=== PATIENT | male | born 1945 | race Caucasian/White ===

== ENCOUNTER 2018-05-17 11:25 | Inpatient (IN) | payer MEDICARE, OTHER ==
[~2018-05-17] VITALS: Ht 180.3 cm; Wt 81.2 kg
[2018-05-17 12:07] LABS: Basophils # (auto) 0 uL; Basophils % (auto) 0.5 % (0.0-2.0); Eosinophils # (auto) 0 uL; Eosinophils % (auto) 0.5 % (0.0-7.0); Hematocrit 47.7 % (41.0-53.0); Hemoglobin 15.8 g/dL (13.5-17.5); Lymphocytes # (auto) 1.4 uL; Lymphocytes % (auto) 19.4 % (10.0-50.0); Mean Corpuscular Hemoglobin 30.6 pg (28.0-32.0); Mean Corpuscular Hgb Conc. 33.2 g/dL (32.0-36.0); Mean Corpuscular Volume 92.3 fL (80.0-100.0); Monocytes # (auto) 0.7 uL; Neutrophils # (auto) 5.2 uL; Neutrophils % (auto) 70.6 % (37.0-80.0); Platelet Count (auto) 204 10^3/uL (140-450); Red Blood Cells 5.16 10^6/uL (4.5-5.90); Red Cell Distribution Width 15.1 % (11.8-14.3); White Blood Cell 7.4 10^3/uL (4.4-10.8)
[2018-05-17 12:30] LABS: Alanine Aminotransferase 32 U/L (16-61); Albumin 3.9 g/dL (3.4-5.0); Anion Gap 4 (5-15); Blood Urea Nitrogen 14 mg/dL (7-18); Calcium 8.9 mg/dL (8.5-10.1); Carbon Dioxide 27 mmol/L (21-32); Chloride 104 mmol/L (98-107); Glucose 113 mg/dL (74-106); Potassium 3.5 mmol/L (3.5-5.1); Sodium 135 mmol/L (136-145)
[2018-05-17 12:35] LABS: Alkaline Phosphatase 73 U/L (45-117); Aspartate Aminotransferase 20 U/L (15-37); BUN/Creatinine Ratio 15.7; Bilirubin, Total 0.5 mg/dL (0.2-1.0); GFR African American 108 mL/min; GFR Non-African American 90 mL/min; Total Protein 7.9 g/dL (6.4-8.2)
[2018-05-17] MEDS ORDERED: ASPirin 81 mg TAB PO ONE (13:15)
[2018-05-17] MEDS ORDERED: HYDROcodone-ACET 5/325MG TAB PO PRN (13:45)
[2018-05-17] MEDS ORDERED: LABETALOL HCL 5 MG/ML ML 20ML VIAL IV PRN (13:45)
[2018-05-17] MEDS ORDERED: LORazepam 0.5 MG TAB PO PRN (13:45)
[2018-05-17] MEDS ORDERED: MORPHINE SULFATE 4 MG/ML SYR/VIAL IV PRN ×2 (13:45)
[2018-05-17] MEDS ORDERED: LACTULOSE 20Gm/30ML SOLN PO PRN (13:45)
[2018-05-17] MEDS ORDERED: PROMETHAZINE HCL 25 MG/ML 1ML IV PRN (13:45)
[2018-05-17] MEDS ORDERED: ACETAMINOPHEN 500 MG TAB PO PRN (13:45)
[2018-05-17] MEDS ORDERED: NITROGLYCERIN 0.4 MG SL TAB SL PRN (13:45)
[2018-05-17 13:49] LABS: Blood Alcohol < 3.0 mg/dL (0-5); Magnesium 2.1 mg/dL (1.6-2.6)
[2018-05-17] MEDS: SODIUM CHLORIDE 0.9% 1,000 ML IV SCH (13:51)
[2018-05-17 13:53] LABS: Urine Bacteria NONE SEEN /hpf (None Seen); Urine Blood Negative /uL (Negative); Urine Mucus FEW (None Seen); Urine Specific Gravity 1.015 (1.001-1.035); Urine WBC 1 /hpf (0 - 3)
[2018-05-17 14:05] LABS: Alcohol, Urine < 3.0 mg/dL (0-5); Amphetamine Screen, Urine NEGATIVE (NEGATIVE); Barbiturate Scree,Urine NEGATIVE (NEGATIVE); Benzodiazephine Screen, Urine NEGATIVE (NEGATIVE); Cannabinoid Screen, Urine POSITIVE (NEGATIVE); Cocaine Screen, Urine NEGATIVE (NEGATIVE); Opiate Scree,Urine NEGATIVE (NEGATIVE); Phencyclidine Screen, Urine NEGATIVE (NEGATIVE)
[2018-05-17] MEDS ORDERED: ENOXAPARIN SOD 40 MG/0.4 ML SYRINGE SC SCH (14:12)
[2018-05-17 15:36] VITALS: BP 98/64
[2018-05-17] MEDS ORDERED: LISI40TA PO (16:16)
[2018-05-17] MEDS ORDERED: ATOR20TA50 PO (16:16)
[2018-05-17] MEDS ORDERED: HCTZ25T PO (16:16)
[2018-05-17 16:50] VITALS: BP 164/93
[2018-05-17] MEDS: TEMAZEPAM 15 MG CAP PO PRN (21:42)
[2018-05-17] MEDS ORDERED: ATORVASTATIN 20 MG TAB PO SCH (22:00)
[2018-05-18] MEDS: SODIUM CHLORIDE 0.9% 1,000 ML IV SCH (03:18)
[2018-05-18 05:03] VITALS: BP 145/73
[2018-05-18 06:08] LABS: Cholesterol 174 mg/dL (< 200); HDL Cholesterol 79 mg/dL (40-59); LDL Cholesterol 89 mg/dL (< 100); Triglycerides 70 mg/dL (< 150)
[2018-05-18] MEDS ORDERED: IBUP800T24 PO (08:07)
[2018-05-18] MEDS ORDERED: LORazepam 2MG/ML-1ML VIAL IV PRN (09:00)
[2018-05-18 09:03] VITALS: BP 194/98
[2018-05-18] MEDS: PANTOPRAZOLE 40 MG TAB PO SCH (09:32)
[2018-05-18] MEDS: ENOXAPARIN SOD 40 MG/0.4 ML SYRINGE SC SCH ×2 (09:33→21:23)
[2018-05-18] MEDS: ASPirin 81 mg TAB PO SCH (09:33)
[2018-05-18 09:39] LABS: Folate (Folic Acid) > 24.00 ng/mL (5.38-24)
[2018-05-18] MEDS: cloNIDine HCL 0.1 MG TAB PO PRN ×2 (11:35→23:12)
[2018-05-18 13:00] VITALS: BP 159/93
[2018-05-18 15:05] VITALS: BP 133/91
[2018-05-18 17:00] VITALS: BP 136/67
[2018-05-18] MEDS: TEMAZEPAM 15 MG CAP PO PRN (21:02)
[2018-05-18 22:00] VITALS: BP 161/81
[2018-05-18] MEDS ORDERED: ATORVASTATIN 20 MG TAB PO SCH ×2 (22:00)
[2018-05-19 05:00] VITALS: BP 156/78
[2018-05-19 05:19] LABS: Basophils # (auto) 0 uL; Basophils % (auto) 0.6 % (0.0-2.0); Eosinophils # (auto) 0.1 uL; Eosinophils % (auto) 0.7 % (0.0-7.0); Hematocrit 46.5 % (41.0-53.0); Hemoglobin 15.5 g/dL (13.5-17.5); Lymphocytes # (auto) 1.6 uL; Lymphocytes % (auto) 22.5 % (10.0-50.0); Mean Corpuscular Hemoglobin 30.9 pg (28.0-32.0); Mean Corpuscular Hgb Conc. 33.3 g/dL (32.0-36.0); Monocytes # (auto) 0.7 uL; Neutrophils # (auto) 4.7 uL; Neutrophils % (auto) 66.2 % (37.0-80.0); Nucleated Red Blood Cells % 0.1 %; Platelet Count (auto) 180 10^3/uL (140-450); Red Cell Distribution Width 15.3 % (11.8-14.3); White Blood Cell 7.1 10^3/uL (4.4-10.8)
[2018-05-19 05:31] LABS: Albumin 3.4 g/dL (3.4-5.0); Calcium 8.6 mg/dL (8.5-10.1); Potassium 3.8 mmol/L (3.5-5.1)
[2018-05-19 05:36] LABS: BUN/Creatinine Ratio 17.2; Bilirubin, Total 0.7 mg/dL (0.2-1.0); Total Protein 7.2 g/dL (6.4-8.2)
[2018-05-19 09:00] VITALS: BP 164/97
[2018-05-19] MEDS: PANTOPRAZOLE 40 MG TAB PO SCH (09:27)
[2018-05-19] MEDS: ASPirin 81 mg TAB PO SCH (09:27)
[2018-05-19] MEDS: ENOXAPARIN SOD 40 MG/0.4 ML SYRINGE SC SCH (09:36)
[2018-05-19] MEDS ORDERED: HCTZ 25 MG TAB PO SCH (10:00)
[2018-05-19] MEDS ORDERED: LISINOPRIL 20 MG TAB PO SCH (10:00)
[2018-05-19 13:00] VITALS: BP 155/95
[2018-05-19 13:54] VITALS: BP 156/78
[2018-05-19 14:00] VITALS: BP 156/78
== END 2018-05-19 14:38 | disposition home health service (06) | DRG 65 ==
LOC: ER 11:33 → TELE 13:53 → TELE-WESTW 14:56
PROVIDERS: ADMIT Internal Medicine; ATTEND Internal Medicine
DX: I63.9 Cerebral infarction, unspecified (principal); E87.1 Hypo-osmolality and hyponatremia; E66.01 Morbid (severe) obesity due to excess calories; E78.5 Hyperlipidemia, unspecified; F12.90 Cannabis use, unspecified, uncomplicated; F17.200 Nicotine dependence, unspecified, uncomplicated; G89.29 Other chronic pain; I10 Essential (primary) hypertension; M54.5 Low back pain; Z79.82 Long term (current) use of aspirin; M19.90 Unspecified osteoarthritis, unspecified site; Z79.899 Other long term (current) drug therapy; Z86.73 Personal history of transient ischemic attack (TIA), and cerebral infarction without residual deficits; Z82.3 Family history of stroke; Z82.49 Family history of ischemic heart disease and other diseases of the circulatory system; Z90.89 Acquired absence of other organs; Z68.25 Body mass index [BMI] 25.0-25.9, adult
CPT/HCPCS: 36415; 70450; 80053; 80061; 80307; 80320; 81001; 82550; 82746; 83735; 84484; 85025; 85652; 93005; 93306; 93886; 94761; 96372; A6257; G0378

== ENCOUNTER → 2018-06-03 | Outpatient (CLI) | payer MEDICARE, OTHER ==
[~2018-06-03] MED LIST: ATOR20TA50 PO; HCTZ25T PO; IBUP800T24 PO; LISI40TA PO
[2018-06-03 10:08] LABS: Potassium 3.7 mmol/L (3.5-5.1)
[2018-06-03 10:18] LABS: Calcium 8.9 mg/dL (8.5-10.1)
== END | disposition home or self-care (01) ==
LOC: LAB 08:16
PROVIDERS: ATTEND Psychiatry & Neurology Neurology
DX: I63.9 Cerebral infarction, unspecified (principal)
CPT/HCPCS: 36415; 80048

== ENCOUNTER → 2018-06-29 | Outpatient (CLI) | payer MEDICARE, OTHER ==
[2018-06-29 10:57] LABS: BUN/Creatinine Ratio 35.2; Calcium 9.2 mg/dL (8.5-10.1); Potassium 3.9 mmol/L (3.5-5.1)
== END | disposition home or self-care (01) ==
LOC: LAB 09:13
PROVIDERS: ATTEND Internal Medicine
DX: Z12.5 Encounter for screening for malignant neoplasm of prostate (principal); I10 Essential (primary) hypertension; E78.5 Hyperlipidemia, unspecified; E55.9 Vitamin D deficiency, unspecified; E66.9 Obesity, unspecified; Z86.73 Personal history of transient ischemic attack (TIA), and cerebral infarction without residual deficits
CPT/HCPCS: 36415; 80048; 82306; 84153; 84443

== ENCOUNTER → 2018-08-19 | Outpatient (CLI) | payer MEDICARE, OTHER | END | disposition home or self-care (01) | LOC: LAB 08:52 | PROVIDERS: ATTEND Internal Medicine | DX: Z12.11 Encounter for screening for malignant neoplasm of colon (principal); I10 Essential (primary) hypertension; E78.5 Hyperlipidemia, unspecified; L60.3 Nail dystrophy; Z79.899 Other long term (current) drug therapy | CPT/HCPCS: 36415; 83036 ==

== ENCOUNTER → 2018-12-22 | Outpatient (CLI) | payer MEDICARE, OTHER ==
[2018-12-22 10:52] LABS: Albumin 3.6 g/dL (3.4-5.0); Calcium 9.2 mg/dL (8.5-10.1)
[2018-12-22 10:58] LABS: BUN/Creatinine Ratio 19.4; Bilirubin, Total 0.4 mg/dL (0.2-1.0); Total Protein 7.6 g/dL (6.4-8.2)
== END | disposition home or self-care (01) ==
LOC: LAB 09:13
PROVIDERS: ATTEND Internal Medicine
DX: E11.9 Type 2 diabetes mellitus without complications (principal)
CPT/HCPCS: 36415; 80053; 82043; 83036

== ENCOUNTER → 2019-02-18 | Outpatient (CLI) | payer MEDICARE, OTHER | END | disposition home or self-care (01) | LOC: LAB 10:37 | PROVIDERS: ATTEND Internal Medicine | DX: R22.43 Localized swelling, mass and lump, lower limb, bilateral (principal); R06.02 Shortness of breath | CPT/HCPCS: 83880 ==

== ENCOUNTER → 2020-03-08 | Outpatient (CLI) | payer MEDICARE, OTHER ==
[~2020-03-08] MED LIST changes: -LISI40TA PO; +LISI40TA11 PO
[2020-03-08 09:08] LABS: Potassium 3.8 mmol/L (3.5-5.1)
[2020-03-08 09:20] LABS: Albumin 3.6 g/dL (3.4-5.0); BUN/Creatinine Ratio 21.4; Bilirubin, Total 0.4 mg/dL (0.2-1.0); Calcium 8.9 mg/dL (8.5-10.1); Total Protein 7.3 g/dL (6.4-8.2)
== END | disposition home or self-care (01) ==
LOC: LAB 07:37
PROVIDERS: ATTEND Internal Medicine
DX: E11.9 Type 2 diabetes mellitus without complications (principal); E78.5 Hyperlipidemia, unspecified
CPT/HCPCS: 36415; 80053; 80061; 83036

== ENCOUNTER → 2020-06-12 | Outpatient (CLI) | payer MEDICARE, OTHER ==
[2020-06-12 07:46] LABS: Urine Bacteria NONE SEEN /hpf (None Seen); Urine Blood Negative /uL (Negative); Urine Mucus FEW (None Seen); Urine Specific Gravity 1.022 (1.001-1.035); Urine WBC 2 /hpf (0 - 3)
== END | disposition home or self-care (01) ==
LOC: LAB 07:12
PROVIDERS: ATTEND Internal Medicine
DX: Z12.5 Encounter for screening for malignant neoplasm of prostate (principal); Z12.11 Encounter for screening for malignant neoplasm of colon; E11.9 Type 2 diabetes mellitus without complications; E78.5 Hyperlipidemia, unspecified
CPT/HCPCS: 81001; 84153

== ENCOUNTER → 2020-10-02 | Outpatient (CLI) | payer MEDICARE, OTHER ==
[~2020-10-02] MED LIST changes: -HCTZ25T PO; +HYDR25TA5 PO; -IBUP800T24 PO; +IBUP800T27 PO
== END | disposition home or self-care (01) ==
LOC: LAB 07:17
PROVIDERS: ATTEND Internal Medicine
DX: E11.9 Type 2 diabetes mellitus without complications (principal); E78.5 Hyperlipidemia, unspecified
CPT/HCPCS: 36415; 82043; 83036

== ENCOUNTER → 2020-10-17 | Outpatient (CLI) | payer MEDICARE, OTHER | END | disposition home or self-care (01) | LOC: LAB 09:17 | PROVIDERS: ATTEND Internal Medicine | DX: E11.9 Type 2 diabetes mellitus without complications (principal); I50.9 Heart failure, unspecified | CPT/HCPCS: 83880 ==

== ENCOUNTER → 2020-11-13 | Outpatient (CLI) | payer MEDICARE, OTHER ==
[2020-11-13 07:47] LABS: BUN/Creatinine Ratio 22.7; Calcium 8.9 mg/dL (8.5-10.1); Potassium 3.8 mmol/L (3.5-5.1)
== END | disposition home or self-care (01) ==
LOC: LAB 07:16
PROVIDERS: ATTEND Internal Medicine
DX: E11.9 Type 2 diabetes mellitus without complications (principal); I50.9 Heart failure, unspecified
CPT/HCPCS: 36415; 80048

== ENCOUNTER → 2020-11-15 | Outpatient (CLI) | payer MEDICARE, OTHER | END | disposition home or self-care (01) | LOC: XYW 08:41 | PROVIDERS: ATTEND Internal Medicine | DX: I35.8 Other nonrheumatic aortic valve disorders (principal); I51.7 Cardiomegaly; I50.9 Heart failure, unspecified | CPT/HCPCS: 93306 ==

== ENCOUNTER → 2020-12-29 | Outpatient (CLI) | payer MEDICARE, OTHER ==
[2020-12-29 08:00] LABS: Calcium 9.3 mg/dL (8.5-10.1); Potassium 4.2 mmol/L (3.5-5.1)
== END | disposition home or self-care (01) ==
LOC: LAB 07:08
PROVIDERS: ATTEND Internal Medicine
DX: E11.9 Type 2 diabetes mellitus without complications (principal)
CPT/HCPCS: 36415; 80048

== ENCOUNTER → 2021-05-09 | Outpatient (CLI) | payer MEDICARE, OTHER ==
[2021-05-09 08:27] LABS: BUN/Creatinine Ratio 29.1; Calcium 8.8 mg/dL (8.5-10.1); Potassium 4.1 mmol/L (3.5-5.1)
== END | disposition home or self-care (01) ==
LOC: LAB 07:39
PROVIDERS: ATTEND Internal Medicine
DX: E11.9 Type 2 diabetes mellitus without complications (principal)
CPT/HCPCS: 36415; 80048

== ENCOUNTER → 2021-06-19 | Outpatient (CLI) | payer MEDICARE, OTHER ==
[2021-06-19 10:06] LABS: Albumin 3.7 g/dL (3.4-5.0); Bilirubin, Direct 0.1 mg/dL (0-0.2); Bilirubin, Total 0.4 mg/dL (0.2-1.0); Total Protein 7.4 g/dL (6.4-8.2)
== END | disposition home or self-care (01) ==
LOC: LAB 08:09
PROVIDERS: ATTEND Internal Medicine
DX: E78.5 Hyperlipidemia, unspecified (principal)
CPT/HCPCS: 36415; 80076

== ENCOUNTER → 2021-08-01 | Outpatient (CLI) | payer MEDICARE, OTHER ==
[2021-08-01 10:35] LABS: Potassium 4.2 mmol/L (3.5-5.1)
[2021-08-01 10:43] LABS: Albumin 3.9 g/dL (3.4-5.0); BUN/Creatinine Ratio 26.3; Bilirubin, Direct 0.1 mg/dL (0-0.2); Bilirubin, Total 0.5 mg/dL (0.2-1.0); Calcium 9.1 mg/dL (8.5-10.1); Total Protein 7.3 g/dL (6.4-8.2)
== END | disposition home or self-care (01) ==
LOC: LAB 07:17
PROVIDERS: ATTEND Internal Medicine
DX: I11.0 Hypertensive heart disease with heart failure (principal); E11.9 Type 2 diabetes mellitus without complications; I50.9 Heart failure, unspecified; Z12.11 Encounter for screening for malignant neoplasm of colon; R97.20 Elevated prostate specific antigen [PSA]
CPT/HCPCS: 36415; 80048; 80061; 80076; 82043; 83880; 84153; 84154

== ENCOUNTER → 2021-10-31 | Outpatient (CLI) | payer MEDICARE, OTHER ==
[2021-10-31 08:27] LABS: Albumin 3.7 g/dL (3.4-5.0); Calcium 8.9 mg/dL (8.5-10.1)
[2021-10-31 08:32] LABS: BUN/Creatinine Ratio 25.3; Bilirubin, Total 0.6 mg/dL (0.2-1.0); Total Protein 7.6 g/dL (6.4-8.2)
== END | disposition home or self-care (01) ==
LOC: LAB 07:22
PROVIDERS: ATTEND Internal Medicine
DX: E78.5 Hyperlipidemia, unspecified (principal); E11.9 Type 2 diabetes mellitus without complications; R97.20 Elevated prostate specific antigen [PSA]
CPT/HCPCS: 36415; 80053; 83036; 84153; 84154

== ENCOUNTER → 2022-01-29 | Outpatient (CLI) | payer MEDICARE, OTHER | END | disposition home or self-care (01) | LOC: LAB 07:17 | PROVIDERS: ATTEND Internal Medicine | DX: E11.9 Type 2 diabetes mellitus without complications (principal) | CPT/HCPCS: 36415; 83036 ==

== ENCOUNTER → 2022-06-04 | Outpatient (CLI) | payer MEDICARE, OTHER ==
[2022-06-04 07:50] LABS: Basophils # (auto) 0 10 ^3/uL (0-0.2); Basophils % (auto) 0.5 % (0.0-2.0); Eosinophils # (auto) 0.2 10 ^3/uL (0-0.8); Hematocrit 41.3 % (41.0-53.0); Hemoglobin 14.1 g/dL (13.5-17.5); Lymphocytes # (auto) 3.3 10 ^3/uL (0.4-5.4); Lymphocytes % (auto) 40.5 % (10.0-50.0); Mean Corpuscular Hemoglobin 30.8 pg (28.0-32.0); Mean Corpuscular Hgb Conc. 34.1 g/dL (32.0-36.0); Mean Corpuscular Volume 90.1 fL (80.0-100.0); Monocytes # (auto) 0.9 10 ^3/uL (0-1.3); Monocytes % (auto) 11.6 % (0.0-12.0); Neutrophils # (auto) 3.6 10 ^3/uL (1.6-8.6); Neutrophils % (auto) 44.4 % (37.0-80.0); Nucleated Red Blood Cells % 0.1 %; Red Blood Cells 4.59 10^6/uL (4.5-5.90); Red Cell Distribution Width 16.1 % (11.8-14.3)
[2022-06-04 08:16] LABS: BUN/Creatinine Ratio 20.4; Calcium 8.9 mg/dL (8.5-10.1); Potassium 4.1 mmol/L (3.5-5.1)
== END | disposition home or self-care (01) ==
LOC: LAB 07:20
PROVIDERS: ATTEND Internal Medicine
DX: R97.20 Elevated prostate specific antigen [PSA] (principal); I10 Essential (primary) hypertension; E11.39 Type 2 diabetes mellitus with other diabetic ophthalmic complication
CPT/HCPCS: 36415; 80048; 83036; 84153; 84154; 85025

== ENCOUNTER → 2023-03-18 | Outpatient (CLI) | payer MEDICARE, OTHER ==
[~2023-03-18] MED LIST changes: +IBUP-1456 PO; -IBUP800T27 PO; -LISI40TA11 PO; +LISI40TA16 PO
[2023-03-18 08:49] LABS: Chloride 106 mmol/L (98-107); Potassium 4.1 mmol/L (3.5-5.1); Sodium 140 mmol/L (136-145)
[2023-03-18 08:50] LABS: Anion Gap 9 (5-15); Calcium 10.2 mg/dL (8.5-10.1); Carbon Dioxide 25 mmol/L (20-30)
[2023-03-18 08:55] LABS: BUN/Creatinine Ratio 16.9 (10.0-20.0); Blood Urea Nitrogen 13 mg/dL (9-23); Glucose 96 mg/dL (74-106)
[2023-03-18 09:03] LABS: Creatinine, Urine 106.38 mg/dL (30.0-125.0)
== END | disposition home or self-care (01) ==
LOC: LAB 07:11
PROVIDERS: ATTEND Internal Medicine
DX: E11.9 Type 2 diabetes mellitus without complications (principal)
CPT/HCPCS: 36415; 80048; 82043; 82570; 83036

== ENCOUNTER → 2023-07-28 | Outpatient (CLI) | payer OTHER ==
[2023-07-28 08:09] LABS: LDL Cholesterol 71 mg/dL (< 100); Triglycerides 56 mg/dL (< 150)
[2023-07-28 08:10] LABS: Cholesterol 145 mg/dL (< 200)
[2023-07-28 08:12] LABS: HDL Cholesterol 57 mg/dL (40-59)
[2023-07-29 08:06] LABS: PSA Free 0.78 ng/mL; Prostate Specific Antigen 7.8 ng/mL (0.0-4.0)
== END | disposition home or self-care (01) ==
LOC: LAB 06:28
PROVIDERS: ATTEND Internal Medicine
DX: R97.20 Elevated prostate specific antigen [PSA] (principal); E78.5 Hyperlipidemia, unspecified
CPT/HCPCS: 36415; 80061; 84153; 84154

== ENCOUNTER → 2024-04-27 | Outpatient (CLI) | payer OTHER ==
[2024-04-27 07:29] LABS: Alanine Aminotransferase 31 U/L (7-40); Alkaline Phosphatase 86 U/L (46-116); Anion Gap 11 (5-15); BUN/Creatinine Ratio 24.2 (10.0-20.0); Blood Urea Nitrogen 29 mg/dL (9-23); Calcium 10.1 mg/dL (8.7-10.4); Carbon Dioxide 25 mmol/L (20-31); Chloride 107 mmol/L (98-107); Glucose 106 mg/dL (74-106); LDL Cholesterol 66 mg/dL (< 100); Potassium 4.5 mmol/L (3.5-5.1); Sodium 143 mmol/L (136-145); Triglycerides 71 mg/dL (< 150)
[2024-04-27 07:30] LABS: Albumin 4.5 g/dL (3.2-4.8); Aspartate Aminotransferase 23 U/L (13-40); Cholesterol 144 mg/dL (< 200); HDL Cholesterol 61 mg/dL (40-59)
[2024-04-27 07:31] LABS: Bilirubin, Total 0.6 mg/dL (0.2-1.0); Creatinine, Urine 57.21 mg/dL (30.0-125.0); Total Protein 7.3 g/dL (5.7-8.2)
== END | disposition home or self-care (01) ==
LOC: LAB 06:15
PROVIDERS: ATTEND Internal Medicine
DX: I10 Essential (primary) hypertension
CPT/HCPCS: 36415; 80053; 80061; 82043; 82570; 83036; 84443

== ENCOUNTER → 2024-06-22 | Outpatient (CLI) | payer OTHER ==
[2024-06-22 06:44] LABS: Calcium 10.1 mg/dL (8.7-10.4); Chloride 107 mmol/L (98-107); Potassium 4.1 mmol/L (3.5-5.1); Sodium 143 mmol/L (136-145)
[2024-06-22 06:45] LABS: Anion Gap 9 (5-15); Carbon Dioxide 27 mmol/L (20-31)
[2024-06-22 06:50] LABS: BUN/Creatinine Ratio 23.6 (10.0-20.0)
[2024-06-22 06:53] LABS: Blood Urea Nitrogen 25 mg/dL (9-23); Glucose 107 mg/dL (74-106)
== END | disposition home or self-care (01) ==
LOC: LAB 06:15
PROVIDERS: ATTEND Internal Medicine
DX: E11.9 Type 2 diabetes mellitus without complications (principal)
CPT/HCPCS: 36415; 80048

== ENCOUNTER → 2024-08-31 | Outpatient (CLI) | payer MEDICARE, OTHER ==
[2024-08-31 07:31] LABS: Creatinine, Urine 52.8 mg/dL (30.0-125.0)
[2024-08-31 07:34] LABS: Alanine Aminotransferase 27 U/L (7-40); Albumin 4.8 g/dL (3.2-4.8); Alkaline Phosphatase 88 U/L (46-116); Anion Gap 9 (5-15); Aspartate Aminotransferase 20 U/L (13-40); BUN/Creatinine Ratio 28.6 (10.0-20.0); Bilirubin, Total 0.6 mg/dL (0.2-1.0); Carbon Dioxide 25 mmol/L (20-31); Glucose 101 mg/dL (74-106); Potassium 4.2 mmol/L (3.5-5.1); Sodium 141 mmol/L (136-145); Total Protein 7.7 g/dL (5.7-8.2)
[2024-08-31 07:38] LABS: Blood Urea Nitrogen 30 mg/dL (9-23); Chloride 107 mmol/L (98-107)
== END | disposition home or self-care (01) ==
LOC: LAB 06:23
PROVIDERS: ATTEND Internal Medicine
DX: E11.9 Type 2 diabetes mellitus without complications (principal)
CPT/HCPCS: 36415; 80053; 82043; 82570; 83036

== ENCOUNTER → 2025-01-06 | Outpatient (CLI) | payer MEDICARE, OTHER ==
[2025-01-06 07:15] LABS: Microalb/Creat Ratio, Urine 9.0
== END | disposition home or self-care (01) ==
LOC: LAB 06:17
PROVIDERS: ATTEND Internal Medicine
DX: E11.9 Type 2 diabetes mellitus without complications (principal)
CPT/HCPCS: 36415; 82043; 82570; 83036